=== PATIENT | female | born 1990 | race Caucasian/White ===

== ENCOUNTER 2019-10-01 22:52 | Emergency (ER) | payer MEDICAID ==
--- NOTE | 2019-10-01 23:41 | EDM.PDOCBH ---
ED HPI GENERAL MEDICAL PROBLEM - General Chief Complaint: Behavioral/Psych Stated Complaint: CHEST DISCOMFORT ANXIETY Time Seen by Provider: 10/01/19 23:33 Source of Information: Reports: Patient History Limitations: Reports: No Limitations - History of Present Illness INITIAL COMMENTS - FREE TEXT/NARRATIVE: pt arrived feeling like she can.t relax and she is feeling slightly sob. She has a history of anxiety Onset: Other (pt shoveled out the car last nite. ) Duration: Hour(s): Location: Reports: Chest, Other ( feels like she is panicky) Associated Symptoms: Reports: Cough, Shortness of Breath, Other ( a feeling of panick in her chest. ) - Related Data Allergies Allergy/AdvReac Type Severity Reaction Status Date / Time No Known Allergies Allergy Verified 10/01/19 23:19 Home Meds: Home Meds NK [No Known Home Meds] 10/01/19 [History] Past Medical History Psychiatric History: Reports: Anxiety, Panic Attack - Infectious Disease History Infectious Disease History: Reports: C-Difficile Social & Family History - Tobacco Use Smoking Status *Q: Never Smoker - Caffeine Use Caffeine Use: Reports: Coffee, Soda - Recreational Drug Use Recreational Drug Use: No ED ROS GENERAL - Review of Systems Review Of Systems: See Below Constitutional: Reports: No Symptoms HEENT: Reports: No Symptoms Respiratory: Reports: Cough, Other (pt shoveled very hard and after that she had a hard coughing episode. She has felt uneasy in her chest since that time. ) Cardiovascular: Reports: Other (pt is not having actual chest pain but it does not feel nrmal. ) Endocrine: Reports: No Symptoms GI/Abdominal: Reports: No Symptoms : Reports: No Symptoms Musculoskeletal: Reports: No Symptoms, Other (pt states she was very exhausted when she finished shoveling. ) Skin: Reports: No Symptoms ED EXAM, BEHAVIORAL HEALTH - Physical Exam Exam: See Below Text/Narrative:: pt has a uneasy sensation in her chest She has good o2 sats. She does not appear labored. Exam Limited By: No Limitations General Appearance: Alert, Anxious Ears: Normal TMs Nose: Normal Inspection Throat/Mouth: Normal Inspection Head: Atraumatic Neck: Normal Inspection Respiratory/Chest: No Respiratory Distress Cardiovascular: Regular Rate, Rhythm GI/Abdominal: Soft, Non-Tender (Female) Exam: Deferred Rectal (Female) Exam: Deferred Back Exam: Normal Inspection Extremities: Normal Inspection Neurological: Alert, Normal Cognition COURSE, BEHAVIORAL HEALTH COMP - Course Vital Signs: Last Vital Signs Temp 37.3 C 10/01/19 23:05 Pulse 82 10/01/19 23:05 Resp 18 10/01/19 23:05 BP 143/84 H 10/01/19 23:05 Pulse Ox 97 10/01/19 23:05 Orders, Labs, Meds: Active Orders 24 hr Category Date Time Status EKG Documentation Completion [RC] ASDIRECTED Care 10/01/19 23:41 Active EKG 12 Lead [EK] Routine Ther 10/01/19 23:41 Ordered Medications Discontinued Medications Generic Name Dose Route Start Last Admin Trade Name Freq PRN Reason Stop Dose Admin Lorazepam 0.5 mg 10/01/19 23:42 10/01/19 23:54 Ativan PO 10/01/19 23:43 0.5 mg ONETIME ONE Administration Medical Clearance: 10/02/19 00:15 pt had a normal ekg 10/02/19 00:16 her vital sign were good. She was given ativan .5. She still seemes quite worried. I advised her to take tomorrow off and to rest , push fluids. Pt did have a ekg which was found to be normal. She was a little more relaxed after she took the ativan. 10/02/19 18:14 Departure - Departure Time of Disposition: 00:17 Disposition: Home, Self-Care 01 Condition: Fair Clinical Impression: Anxiety, Overexertion - Discharge Information Instructions: Living With Anxiety Referrals: PCP,None [Primary Care Provider] - Forms: ED Department Discharge Care Plan Goals: rest, push fluids, tylenol for discomfort, encourage deep breathing. Sepsis Event Note - Evaluation Sepsis Screening Result: No Definite Risk - Focused Exam Date Exam was Performed: 10/02/19 Time Exam was Performed: 18:15 - My Orders Last 24 Hours: My Active Orders 10/01/19 23:41 EKG Documentation Completion [RC] ASDIRECTED EKG 12 Lead [EK] Routine - Assessment/Plan Last 24 Hours: My Active Orders 10/01/19 23:41 EKG Documentation Completion [RC] ASDIRECTED EKG 12 Lead [EK] Routine
[2019-10-01] MEDS ORDERED: LORazepam 0.5 MG Tab PO ONE (23:42)
== END 2019-10-02 00:30 | disposition home or self-care (01) ==
LOC: JP.ED 22:52
DX: F41.9 Anxiety disorder, unspecified (principal); R63.2 Polyphagia
CPT/HCPCS: 93005; 99284; A9270

== ENCOUNTER 2020-03-12 07:37 | Day surgery (SDC) | payer MEDICAID ==
[~2020-03-12 07:37] MED LIST: Midazolam 1 MG/ML 2 ML SDV ONE; Propofol 200 MG/20 ML SDV ONE; fentaNYL 100 MCG/2 ML SDV ONE
[2020-03-12] MEDS ORDERED: Dextrose 5%-Lactated Ringers 1,000 ML IV SCH (08:15)
[2020-03-12] MEDS ORDERED: Glycopyrrolate 0.2 MG/ML 2 ML SDV IVPUSH ONE (08:15)
--- NOTE | 2020-03-21 16:12 | OR ---
DATE OF PROCEDURE: 03/12/2020 SURGEON: Marques Dahl MD PREOPERATIVE DIAGNOSIS: Intermittent chest pressure with history suggestive of gastroesophageal reflux disease. POSTOPERATIVE DIAGNOSES: 1. Intermittent chest pressure with history suggestive of gastroesophageal reflux disease. 2. Small hiatal hernia with mild distal esophagitis. 3. Mild antral gastritis. OPERATIVE PROCEDURES: Esophagogastroduodenoscopy with, 1. Biopsies of esophagogastric junction for histologic evaluation. 2. Biopsies of antrum for CLOtest. ANESTHESIA: IV sedation. INDICATION: This is a 29-year-old presenting with some intermittent chest pressure suggestive of gastroesophageal reflux disease. She had until recently been on omeprazole 40 mg a day and with that had good results in terms of the reflux symptoms and chest pressure, but this was stopped due to side effects. She had a trial of Pepcid 20 mg b.i.d. with less results in terms of resolution of symptoms. The plan is to proceed with upper GI endoscopy with biopsies as indicated. Potential risks including bleeding and perforation were discussed, and the patient wishes to proceed. DETAILS OF PROCEDURE: The patient was taken to the operating room and placed in a left lateral decubitus position. IV sedation was administered, after which the upper GI endoscope was passed orally through the length of the esophagus, into the stomach with retroflexion view of the fundus, thereafter through the pyloric channel and junction of the third and fourth portions of the duodenum. Findings included normal hypopharynx, larynx, upper esophageal sphincter, and esophageal body. At the EG junction, a roughly 2 cm hiatal hernia was present. There was some mild friability and edema of the distal esophageal mucosa consistent with some gastroesophageal reflux disease. No significant upward extension of the gastroesophageal junction mucosal line was noted, i.e., no gross evidence of [place] esophagus was present. Within the stomach, there was some patchy redness in the antrum. Pyloric channel and visualized portion of the duodenum were otherwise unremarkable. At this point, biopsies were obtained from esophagogastric junction and sent for histologic evaluation. Biopsies were sent from antrum for CLOtest for H pylori. Minimal bleeding from the biopsy site was seen and the procedure then concluded. The plan will be to have the patient go on Protonix 40 mg a day. This apparently had been taken only intermittently. She was instructed to take it daily. We will see her back on 03/28/2020, to determine the adequacy of symptom control and to determine whether or not anything more should be performed in terms of any surgical intervention. Marques Dahl MD /[id number]
== END 2020-03-12 11:11 | disposition home or self-care (01) ==
LOC: JP.SDS 07:37
PROVIDERS: ATTEND Surgery
DX: K29.50 Unspecified chronic gastritis without bleeding (principal); K44.9 Diaphragmatic hernia without obstruction or gangrene; K20.9 Esophagitis, unspecified; R07.89 Other chest pain; E66.9 Obesity, unspecified; F41.0 Panic disorder [episodic paroxysmal anxiety]; Z68.37 Body mass index [BMI] 37.0-37.9, adult
CPT/HCPCS: 43239; 81025; 87081; 88305; J2250; J2704; J3010; J3490; J7121

== ENCOUNTER 2023-05-29 05:59 | Day surgery (SDC) | payer MEDICAID, OTHER ==
[2023-05-29] MEDS ORDERED: Sodium Chloride 0.9% 1,000 ML IV SCH (06:30)
[2023-05-29] MEDS ORDERED: metroNIDAZOLE/Normal Saline 500 MG in Premix Bag 1 BAG IV ONE (06:30)
[2023-05-29] MEDS ORDERED: Indocyanine Green 25 MG SDV IV ONE (06:30)
[2023-05-29] MEDS ORDERED: cefTRIAXone 2 GM in Sodium Chloride 0.9% 50 ML IV ONE (06:30)
[2023-05-29] MEDS ORDERED: Scopolamine 1.5 MG Transdermal Patch TOP SCH (06:30)
[2023-05-29] MEDS ORDERED: Bupivacaine 0.5%/EPINEPHrine 1:200,000 50 ML MDV ONE (06:34)
[2023-05-29] MEDS ORDERED: Ondansetron 4 MG/2 ML SDV ONE (07:18)
[2023-05-29] MEDS ORDERED: Neostigmine Methylsulfate 1 MG/ML 5 ML Syringe ONE (07:18)
[2023-05-29] MEDS ORDERED: Glycopyrrolate 0.2 MG/ML 5 ML MDV ONE (07:18)
[2023-05-29] MEDS ORDERED: Dexamethasone 4 MG/ML SDV ONE (07:18)
[2023-05-29] MEDS ORDERED: Rocuronium 50 MG/5 ML Vial ONE (07:18)
[2023-05-29] MEDS ORDERED: Propofol 200 MG/20 ML SDV ONE (07:18)
[2023-05-29] MEDS ORDERED: fentaNYL 250 MCG/5 ML SDV ONE (07:19)
[2023-05-29] MEDS ORDERED: fentaNYL 100 MCG/2 ML SDV ONE ×2 (08:07→08:45)
[2023-05-29] MEDS ORDERED: Acetaminophen/HYDROcodone 325-5 MG Tab PO PRN (10:21)
[2023-05-29] MEDS ORDERED: Lactated Ringers 1,000 ML IV SCH (11:45)
== END 2023-05-29 13:10 | disposition home or self-care (01) ==
LOC: JP.SDS 05:59
PROVIDERS: ATTEND Student in an Organized Health Care Education/Training Program
DX: K80.13 Calculus of gallbladder with acute and chronic cholecystitis with obstruction (principal); K21.00 Gastro-esophageal reflux disease with esophagitis, without bleeding; K44.9 Diaphragmatic hernia without obstruction or gangrene; E66.09 Other obesity due to excess calories; F40.01 Agoraphobia with panic disorder; Z68.41 Body mass index [BMI] 40.0-44.9, adult; Z79.899 Other long term (current) drug therapy
CPT/HCPCS: 47562; 81025; 88304; A9270; J1100; J2405; J2704; J2710; J3010; J3490; J7030; J7120

== ENCOUNTER 2024-02-24 22:06 | Emergency (ER) | payer OTHER ==
[2024-02-24 23:55] LABS: BASOPHILS ABSOLUTE AUTO 0.04 K/uL (0.00-0.10); BASOPHILS PERCENT AUTO 0.3 % (0.1-1.3); EOSINOPHILS ABSOLUTE AUTO 0.18 K/uL (0.00-0.40); EOSINOPHILS PERCENT AUTO 1.6 % (0.0-5.4); HEMATOCRIT 36.6 % (34.3-46.0); HEMOGLOBIN 12.5 g/dL (11.2-15.5); IMMATURE GRAN ABSOLUTE AUTO 0.07 K/uL (0.00-0.23); IMMATURE GRAN PERCENT AUTO 0.6 % (0.0-0.7); LYMPHOCYTES ABSOLUTE AUTO 1.96 K/uL (0.8-3.3); MEAN CORPUSCULAR HEMOGLOBIN 30.3 pg (31.6-35.5); MEAN CORPUSCULAR HGB CONC 34.2 g/dL (31.6-35.5); MEAN CORPUSCULAR VOLUME 88.6 fL (81.4-99.0); MONOCYTES ABSOLUTE AUTO 0.76 K/uL (0.20-0.90); MONOCYTES PERCENT AUTO 6.6 % (3.3-12.6); NEUTROPHILS PERCENT AUTO 73.9 % (40.0-78.1); PLATELET COUNT,PLT 217 K/uL (130-375); RED BLOOD CELL COUNT 4.13 M/uL (3.77-5.24); WHITE BLOOD CELL COUNT,WBC 11.5 K/uL (3.2-11.0)
[2024-02-25 00:27] LABS: A/G RATIO 0.8 (1.2-2.2); ALANINE AMINOTRANSFERASE,ALT 34 U/L (12-78); ALBUMIN 3.3 g/dL (3.4-5.0); ALKALINE PHOSPHATASE 58 U/L (46-116); ASPARTATE AMNIOTRANSFERASE,AST 19 U/L (15-37); BILIRUBIN TOTAL 0.2 mg/dL (0.2-1.0); BLOOD UREA NITROGEN,BUN 10 mg/dL (7-18); C-REACTIVE PROTEIN 0.55 mg/dL (<0.50); CALCIUM 9.1 mg/dL (8.5-10.1); CARBON DIOXIDE,CO2 26 mmol/L (21-32); CHLORIDE,CL 105 mmol/L (100-108); CREATININE 0.8 mg/dL (0.6-1.0); EST CRCL DRUG DOSING (CG) 95.38 mL/min; ESTIMATED GFR 101 mL/min (>60); GLUCOSE RANDOM 122 mg/dL (74-106); POTASSIUM,K 4.2 mmol/L (3.6-5.2); PROTEIN TOTAL,TP 7.5 g/dL (6.4-8.2); SODIUM,NA 138 mmol/L (140-148)
[2024-02-25 00:28] LABS: ANION GAP 11.2 mmol/L (5.0-14.0); TROPONIN I HIGH SENSITIVITY < 4.0 pg/mL (<=60.3)
[2024-02-25] MEDS: Acetaminophen 500 MG Tab PO ONE (01:19)
== END 2024-02-25 01:24 | disposition home or self-care (01) ==
LOC: JP.ED 22:06
DX: R07.89 Other chest pain (principal); E66.01 Morbid (severe) obesity due to excess calories; Z68.42 Body mass index [BMI] 45.0-49.9, adult; Z79.899 Other long term (current) drug therapy
CPT/HCPCS: 36415; 80053; 84484; 85025; 86140; 93005; 99285; A9270; 93010